=== PATIENT | female | born 1960 | race Caucasian/White ===

== ENCOUNTER 2018-04-08 16:15 | Emergency (ER) | payer SELFPAY ==
[2018-04-08] MEDS ORDERED: diphenhydrAMINE 50 MG/ML VIAL ONE ×2 (16:49→19:26)
[2018-04-08] MEDS ORDERED: Acetaminophen 500 MG TAB ONE ×2 (16:49→19:26)
[2018-04-08] MEDS ORDERED: Ketorolac Tromethamine 30 MG/ML VIAL ONE ×2 (16:49→19:26)
[2018-04-08] MEDS ORDERED: Metoclopramide HCl 10 MG/2 ML VIAL ONE ×2 (16:49→19:26)
[2018-04-08 16:50] LABS: Hemoglobin 12.1 g/dL (12.0-16.0); Mean Corpuscular Hemoglobin 30.4 pg (27.0-31.0); Mean Corpuscular Volume 89.4 fL (78.0-98.0); Mean Platelet Volume 7.6 fL (7.4-10.4); Platelet Count 242 thou/uL (130-400); RBC Distribution Width 12.5 % (11.5-14.5); Red Blood Cell (RBC) Count 3.97 mill/uL (4.20-5.40); White Blood Cell (WBC) Count 4.4 thou/uL (4.8-10.8)
[2018-04-08 17:08] LABS: Elliptocytes SLIGHT = 2-5 cells (100X) (0-1/hpf); Eosinophils 4 % (0-10); Lymphocytes 47 % (21-51); MDiff Complete? YES; Monocytes 5 % (0-10); Neutrophil 44 % (42-75); PLT Morphology Comment Appears Adequate
[2018-04-08 17:14] LABS: ALT (SGPT) 13 U/L (8-55); AST (SGOT) 29 U/L (5-34); Albumin 4.4 g/dL (3.5-5.0); Alkaline Phosphatase 179 U/L (40-150); Anion Gap 14 mmol/L (10-20); BUN (Urea Nitrogen) 11 mg/dL (9.8-20.1); Bilirubin, Total 0.2 mg/dL (0.2-1.2); Calc. Creatinine Clearance 0 mL/min (70-130); Calcium 9.5 mg/dL (7.8-10.44); Carbon Dioxide 26 mmol/L (22-29); Chloride 104 mmol/L (98-107); Estimated GFR-MDRD 73; Globulin 3.2 g/dL (2.4-3.5); Glucose 95 mg/dL (70-105); Lipase 33 U/L (8-78); Potassium 3.7 mmol/L (3.5-5.1); Protein, Total 7.6 g/dL (6.0-8.3); Sodium 140 mmol/L (136-145)
[2018-04-08] MEDS ORDERED: methylPREDNISolone Sod Succ/PF 125 MG/2 ML VIAL ONE (18:10)
[2018-04-08] MEDS ORDERED: Magnesium 2 GM/50 ML BAG (IN WATER) ONE (18:10)
[2018-04-08] MEDS ORDERED: Water For Inject, Bacteriostat 30 ML ONE (18:10)
[2018-04-08 18:53] LABS: Bilirubin Negative (Negative); Blood, Urine Negative (Negative); Clarity CLEAR (Clear); Glucose, Urine (Dipstick) Negative (Negative); Leukocyte Trace (Negative); Nitrite Negative (Negative); Protein, Urine (Dipstick) Negative (Neg-Trace); Specific Gravity, Urine 1.015 (1.002-1.036); Urobilinogen 0.2 mg/dL (0.2-1.0); pH, Urine 6.5 (5.0-9.0)
[2018-04-08 18:55] LABS: Bacteria/HPF None Seen HPF (None Seen); Hyaline Casts/LPF 0-3 HYALINE CAST LPF (0-3 Hyaline); Pregnancy Test - Urine (BHCG) Negative (Negative); Pregu Control Background? CLEAR/WHITE (CLR/WHITE); Pregu Control Bar Appear? YES (CONTROL BAR); RBC/HPF None Seen HPF (0-3); Specific Gravity 1.015 (1.002-1.036); Squamous Epithelial 0-3 HPF (0-3); WBC/HPF 0-3 HPF (0-3)
== END 2018-04-08 20:13 | disposition home or self-care (01) ==
LOC: ERS 16:15
DX: B34.9 Viral infection, unspecified (principal); R51 Headache; I10 Essential (primary) hypertension; F31.9 Bipolar disorder, unspecified; F17.200 Nicotine dependence, unspecified, uncomplicated
CPT/HCPCS: 51701; 80053; 81003; 81015; 81025; 83690; 85025; 87804; 93005; 96365; 96367; 96375; A4353; J1200; J1885; J2765; J2930

== ENCOUNTER 2018-04-09 20:24 | Emergency (ER) | payer SELFPAY ==
[2018-04-09] MEDS ORDERED: Meclizine HCl 25 MG TAB ONE (21:13)
[2018-04-09] MEDS ORDERED: diphenhydrAMINE 25 MG CAP ONE (21:13)
[2018-04-09] MEDS ORDERED: Acetaminophen 500 MG TAB ONE (21:13)
[2018-04-09] MEDS ORDERED: Metoclopramide HCl 10 MG TAB ONE (21:16)
--- NOTE | 2018-04-09 21:36 | CT ---
CT OF HEAD NONCONTRAST: 04/09/18 INDICATION: Headache. FINDINGS: There is no evidence of acute intracranial hemorrhage, mass effect, midline shift or ventriculomegaly . Imaged paranasal sinuses and mastoid air cells are patent. IMPRESSION: No acute intracranial hemorrhage or mass effect. POS: [facility]
== END 2018-04-09 22:05 | disposition home or self-care (01) ==
LOC: ERS 20:24
DX: R51 Headache (principal); R42 Dizziness and giddiness; R63.5 Abnormal weight gain; I10 Essential (primary) hypertension; F31.9 Bipolar disorder, unspecified; F17.200 Nicotine dependence, unspecified, uncomplicated; Z79.899 Other long term (current) drug therapy
CPT/HCPCS: 70450; 93005

== ENCOUNTER 2018-04-25 14:40 | Observation (INO) | payer SELFPAY ==
[~2018-04-25 14:40] MED LIST: ISOVUE-370 76%-LOCM 1 ML ONE
[2018-04-25] MEDS ORDERED: Promethazine HCl 25 MG/ML VIAL ONE (15:04)
[2018-04-25] MEDS ORDERED: Lidocaine Viscous Sol 2% 15 ml UD Cup ONE (15:04)
[2018-04-25] MEDS ORDERED: Mag-Al 1200 mg/1200 mg/30 ML UDCUP ONE (15:04)
[2018-04-25 15:13] LABS: Bilirubin Negative (Negative); Blood, Urine Negative (Negative); Clarity CLEAR (Clear); Glucose, Urine (Dipstick) Negative (Negative); Leukocyte Negative (Negative); Nitrite Negative (Negative); Protein, Urine (Dipstick) Negative (Neg-Trace); Specific Gravity, Urine 1.005 (1.002-1.036); Urobilinogen 0.2 mg/dL (0.2-1.0)
[2018-04-25 15:22] LABS: #Basophils 0.1 thou/uL (0.0-0.2); #Eosinphils 0.1 thou/uL (0.0-0.7); #Lymphocytes 1.6 thou/uL (1.20-3.40); #Monocytes 0.3 thou/uL (0.11-0.59); #Neutrophils 3.8 thou/uL (1.40-6.50); %Basophils 1.3 % (0.0-1.0); %Lymphocytes 27.9 % (21.0-51.0); %Monocytes 4.3 % (0.0-10.0); %Neutrophils 64.6 % (42.0-75.0); Hemoglobin 13.6 g/dL (12.0-16.0); Mean Corpuscular HGB CONC 34.6 g/dL (32.0-36.0); Mean Corpuscular Hemoglobin 31.5 pg (27.0-31.0); Mean Corpuscular Volume 91.1 fL (78.0-98.0); Mean Platelet Volume 7.3 fL (7.4-10.4); Platelet Count 320 thou/uL (130-400); RBC Distribution Width 12.5 % (11.5-14.5); Red Blood Cell (RBC) Count 4.32 mill/uL (4.20-5.40); White Blood Cell (WBC) Count 5.9 thou/uL (4.8-10.8)
--- NOTE | 2018-04-25 15:32 | RAD ---
PORTABLE CHEST: Date: 04/25/18 PROVIDED CLINICAL HISTORY: Epigastric pain. FINDINGS: Cardiac and mediastinal silhouette is within normal limits for portable technique. No focal consolida tion, pleural fluid, or pneumothorax apparent. IMPRESSION: No evidence for an acute cardiopulmonary process. POS: [facility]
[2018-04-25 15:43] LABS: ALT (SGPT) 21 U/L (8-55); AST (SGOT) 32 U/L (5-34); Albumin 4.7 g/dL (3.5-5.0); Alkaline Phosphatase 202 U/L (40-150); Anion Gap 18 mmol/L (10-20); BUN (Urea Nitrogen) 10 mg/dL (9.8-20.1); Bilirubin, Total 0.3 mg/dL (0.2-1.2); Calc. Creatinine Clearance 0 mL/min (70-130); Calcium 10.3 mg/dL (7.8-10.44); Carbon Dioxide 20 mmol/L (22-29); Chloride 102 mmol/L (98-107); Estimated GFR-MDRD 76; Globulin 3.5 g/dL (2.4-3.5); Glucose 110 mg/dL (70-105); Lipase 23 U/L (8-78); Potassium 3.8 mmol/L (3.5-5.1); Protein, Total 8.2 g/dL (6.0-8.3); Sodium 136 mmol/L (136-145)
[2018-04-25] MEDS ORDERED: Morphine 4 MG/ML VIAL ONE ×2 (15:54→17:17)
--- NOTE | 2018-04-25 16:46 | CT ---
CT ABDOMEN AND PELVIS WITH IV CONTRAST: 04/25/2018 HISTORY: Epigastric abdominal pain for one week with associated vomiting. History of gastric ulcers and bowel obstructions. COMPARISON: None available. FINDINGS: A noncalcified pulmonary nodule is seen at the posterolateral right lung base, measuring 5 mm. There are also small, pleural-based, nodular densities seen within the right middle lobe and lingula, as w ell as each lower lobe. No pleural effusion is present. Post cholecystectomy changes are noted. There is a subcentimeter, zsm-btudf-ld-characterize, hypodense lesion in the mid portion of the left kidney. The liver, spleen, pancreas, bilateral adrenal glands, right kidney, and urinary bladder demonstrate a normal CT appearance. Vascular calcifications are seen in the abdominal aorta and involving the iliac arteries. There is evidence of a hysterectomy. Loops of small bowel are normal in caliber. There is minimal herniation of fat between the rectus abdominis muscles, at the level of the umbilicu s. No free fluid, fluid collection, or lymphadenopathy is seen in the abdomen or pelvis. The osseous structures are intact. IMPRESSION: 1. Right lower lobe pulmonary nodule with several additional pleural-based nodular densities at each lung base. A nonemergent CT thorax is recommended for further evaluation. 2. Postcholecystectomy changes. 3. Hysterectomy. 4. Colonic diverticulosis. 5. Der-fluut-vo-characterize, hypodense lesion in the left kidney. 6. No acute findings are seen in the abdomen or pelvis. CODE LN POS: [facility]
[2018-04-25] MEDS ORDERED: Sucralfate 1 GM/10 ML UDCUP ONE (17:17)
--- NOTE | 2018-04-25 17:30 | PDOC.FPRHP ---
- History of Present Illness Chief Complaint: abdominal pain History of Present Illness: 58yo F with pmh of multiple abdominal surgeries presents with a 1 week hx of constant "undescribable" abdominal pain in the epigastric area that is exacerbated by mvmt and relieved by nothing. Pain is rated 9/10 and has associated subjective chills, and nausea/vomiting 15x/day. Pt reports she has vomited a few small blood clots on and off throughout the week. No recent dietary changes, no travel outside the country, no diarrhea or constipation. last BM was 2 days ago. Pt has hx of peptic ulcer disease 15 years ago, pts disease resolved after course of unkown med (presumably ppi). Of note the pt did present to the ED 3 days ago and pain resolved with phenergan. Pt was able to go home. ED Course: morphine 12mg, carafate 1g, GI cocktail, phenergan 12.5mg, and 1L NS - Allergies/Adverse Reactions Allergies Allergy/AdvReac Type Severity Reaction Status Date / Time Sulfa (Sulfonamide Allergy Verified 04/25/18 22:32 Antibiotics) - Home Medications Medication Instructions Recorded Confirmed Type Gabapentin [Neurontin] 800 mg PO TID 04/25/18 04/25/18 History PARoxetine HCl [Paxil] 40 mg PO DAILY 04/25/18 04/25/18 History Phenytoin Sodium Extended 100 mg PO QID 04/25/18 04/25/18 History [Dilantin ER] - History PMHx: Depression, PSHx: section x2, hysterectomy, cholecystecomy, abdominal adhesion resection x2 FHx: non contributory Social: smokes 1-2 cigarettes/day, denies etoh/drugs - Review of Systems General: reports: fever/chills. denies: fatigue Eyes: denies: eye pain, vision changes ENT: denies: nasal congestion, rhinorrhea Respiratory: denies: cough, shortness of breath Cardiovascular: denies: chest pain, palpitation Gastrointestinal: reports: nausea, vomiting. denies: diarrhea, constipation Genitourinary: denies: dysuria, polyuria, discharge Skin: denies: rashes, lesions Musculoskeletal: denies: pain, tenderness Neurological: denies: syncope, seizure Psychological: denies: anxiety, depression - Vital signs BP: [153/113] HR: [76] RR: [18] Tmax: [98.3] Pox: [98]% on [ra] Wt: [77kg] - Physical Exam Constitutional: awake, alert and oriented, other (moderate distress 2/2 abdominal pain) HEENT: normocephalic and atraumatic, EOMI, conjunctiva clear, grossly normal vision, grossly normal hearing Neck: supple, trachea midline Chest: no-tender to palpation Heart: RRR, normal S1/S2 Lungs: CTAB, no respiratory distress Abdomen: soft, bowel sounds present, other (diffuse moderate TTP, no rebound tenderness) Musculoskeletal: normal structure, normal tone Neurological: no focal deficit, normal sensation Skin: no rash/lesions, good turgor Heme/Lymphatic: no unusual bruising or bleeding, no purpura Psychiatric: normal mood and affect, good judgment and insight FMR H&P: Results - Labs Result Diagrams: 04/25/18 15:08 04/26/18 05:43 Lab results: WBC 5.9 thou/uL (4.8-10.8) 04/25/18 15:08 Hgb 13.6 g/dL (12.0-16.0) 04/25/18 15:08 Hct 39.4 % (36.0-47.0) 04/25/18 15:08 MCV 91.1 fL (78.0-98.0) 04/25/18 15:08 Plt Count 320 thou/uL (130-400) 04/25/18 15:08 Neutrophils % 64.6 % (42.0-75.0) 04/25/18 15:08 Sodium 136 mmol/L (136-145) 04/25/18 15:07 Potassium 3.8 mmol/L (3.5-5.1) 04/25/18 15:07 Chloride 102 mmol/L (98-107) 04/25/18 15:07 Carbon Dioxide 20 mmol/L (22-29) L 04/25/18 15:07 BUN 10 mg/dL (9.8-20.1) 04/25/18 15:07 Creatinine 0.78 mg/dL (0.6-1.1) 04/25/18 15:07 Glucose 110 mg/dL (70-105) H 04/25/18 15:07 Lactic Acid 1.0 mmol/L (0.5-2.2) 04/25/18 15:07 Calcium 10.3 mg/dL (7.8-10.44) 04/25/18 15:07 Total Bilirubin 0.3 mg/dL (0.2-1.2) 04/25/18 15:07 AST 32 U/L (5-34) 04/25/18 15:07 ALT 21 U/L (8-55) 04/25/18 15:07 Alkaline Phosphatase 202 U/L (40-150) H 04/25/18 15:07 Serum Total Protein 8.2 g/dL (6.0-8.3) 04/25/18 15:07 Albumin 4.7 g/dL (3.5-5.0) 04/25/18 15:07 Lipase 23 U/L (8-78) 04/25/18 15:07 Urine Ketones Trace mg/dL (Negative) H 04/25/18 14:57 Urine Blood Negative (Negative) 04/25/18 14:57 Urine Nitrite Negative (Negative) 04/25/18 14:57 Ur Leukocyte Esterase Negative (Negative) 04/25/18 14:57 FMR H&P: A/P - Problem List (1) Abdominal migraine, intractable Current Visit: Yes Status: Acute Code(s): G43.D1 - ABDOMINAL MIGRAINE, INTRACTABLE (2) Peptic ulcer disease Current Visit: Yes Status: Acute Code(s): K27.9 - PEPTIC ULC, SITE UNSP, UNSP AC OR CHR, W/O HEMOR OR PERF (3) Seizure disorder Current Visit: Yes Status: Acute Code(s): G40.909 - EPILEPSY, UNSP, NOT INTRACTABLE, WITHOUT STATUS EPILEPTICUS (4) Depressed Current Visit: Yes Status: Acute Code(s): F32.9 - MAJOR DEPRESSIVE DISORDER , SINGLE EPISODE, UNSPECIFIED - Plan Intractable abdominal pain 2/2 PUD A- Pt has no obvious source of pain and malicious causes r/o with abdominal CT. Considering hx this is likely 2/2 PUD. Pt is hemodynamically stable. Pain is severe in nature and modestly controlled with 12mg morphine given in ED. P- symptomatic relief with phenergan, carafate, bentyl, and tylenol. -Schedule protonix. -If pt has BM, will obtain H pylori Ag and FOBT -consider inpatient GI consultation. Mild hypovolemia 2/2 above A- s/p 1L NS in ED P- NS 120ml/hr - phenergan for nausea Seizure disorder A- Last seizure was over 1 year ago, pt has not tolerated PO dilantin for 2 days P- Check dilantin level - home dilantin Depression -home paxil FULL code PPx: SCDs for VTE, Protonix for GI FMR H&P: Upper Level - Pertinent history 58 yo CF with PMH of PUD, depression, and seizure disorder presenting with intermittent abdominal pain and associated vomiting over the last week. Pt describes sharp/cramping epigastric abd pain that radiates to her back that is worsened with positional changes. No alleviating factors. Pt also endorses associated vomiting, reporting 10-20 episodes per day, mainly dry heaving. Pt also states vomit is blood tinged. She states she has been unable to tolerate PO intake. No recent travel, new diet or medication changes, fevers/chills, diarrhea, or sick contacts. Pt states this has happened before when she was first told about PUD and had EGD out of town. Pt has not yet established with PCP in area. - Pertinent findings VSS Gen: pleasnat in NAD CV: RRR Resp: unlabored, CTAB Abd: BS hypoactive, subjective TTP epigastrium, mild voluntary guarding, no rashes/fluid wave/rebound - Plan Date/Time: 04/25/18 1730 I, Kirill Osuna MD PGY3, have evaluated this patient and agree with findings/ plan as outlined by financial intern resident. Pertinent changes/additions are listed here. 1. Abdominal pain possibly 2/2 PUD -Pt presents with continued abdominal pain but initial workup in ER shows no acute process with normal lab workup. In ER, pt received morphine 12mg, carafate 1g, GI cocktail, phenergan 12.5mg, and 1L NS. -Pt states no relief with initial interventions. -With poor PO intake, continue mIVF. Will provide symptomatic relief with phenergan, bentyl, and tylenol. -Schedule protonix. -No evidence of active bleeding with normal BUN/Cr ratio, will attempt one dose of toradol and monitor response. -If pt has BM, will obtain H pylori Ag -If no improvement, consider inpatient GI consultation. 2. Seizure disorder -Check phenytoin level -Continue medication -Pt's last seizure was over 1 year ago. FULL code PPx: SCDs for VTE, Protonix for GI See financial intern portion of H&P for more details. disposition: Admit to medical observation for anticipated length of stay less than two midnights, pending clinical course. Addendum - Attending - Attending Attestation Date/Time: 04/25/181999 I personally evaluated the patient and discussed the management with Dr. Sabillon and Enrrique I agree with the History, Examination, Assessment and Plan documented above with any addition or exceptions noted below. 58 yo female with history of abdominal adhesions, PUD, MDD, and seizure d/o presents for evaluation of severe abdominal pain. Patient reports progressive and severe abdominal pain over the past week. Was seen 3 days ago for severe pain. Associated symptoms include nausea and vomiting. No change in bowel habits. No change in belching or flatus. Reports blood in vomiting and continuous dry heaving. Reports a similar episode when she was dx with PUD 15 years ago but reports this is much more severe. States the pain is hard to describe. Reports knot in stomach, guadarrama, burning, sore. Located in epigastric area. Radiate to center of back between shoulder blades. Reports morphine in ER did not even touch the pain. States is she remains still she has some relief. Has not been able to eat or take medications in the last 2 days. VS reviewed. Labs reviewed. Imaging reviewed. Tender to touch at epigastric area. BS present. No rebound. Voluntary guarding. ND. 1. Severe abdominal pain: Will schedule pain meds and GI meds. No significant findings on imaging or labs. Will consult GI in AM. Consider vascular scan if workup negative. Prior history of adhesion with 2 surgical resection will potentially need to involve gen surg if workup inconclusive. 2. Lung nodules: Needs pulm consult and workup outpatient. 3. Seizure d/o: Last seizure 1 year ago. Has not been about to take medication in 2 days. Will load then continue maintenance. Check level. 4. DVT ppx: Lovenox ABrayMD
[2018-04-25] MEDS ORDERED: Ondansetron PF 4 MG/2 ML Vial ONE (18:53)
[2018-04-25] MEDS ORDERED: Acetaminophen 325 MG TAB PO PRN (19:47)
[2018-04-25] MEDS ORDERED: Simethicone Chewable 80 MG TAB PO PRN (19:47)
[2018-04-25] MEDS ORDERED: Ondansetron PF 4 MG/2 ML Vial IVP PRN (19:47)
[2018-04-25] MEDS ORDERED: HYDROcodone/Acetaminophen 5/325 mg Tablet PO PRN (19:47)
[2018-04-25] MEDS ORDERED: Calcium Carbonate 500 MG ChewTAB PO PRN (19:47)
[2018-04-25] MEDS ORDERED: Promethazine HCl 25 MG/ML VIAL IM/IV PRN (19:54)
[2018-04-25] MEDS ORDERED: Promethazine 25 MG TAB PO PRN (19:55)
[2018-04-25] MEDS ORDERED: Ketorolac Tromethamine 30 MG/ML VIAL IVP SCH (20:00)
[2018-04-25] MEDS ORDERED: Pantoprazole 40 MG VIAL IVP SCH (20:00)
[2018-04-25] MEDS: Lactated Ringer's 1,000 ML IV SCH (20:50)
[2018-04-25] MEDS: Gabapentin 400 MG CAP PO SCH (20:52)
[2018-04-25] MEDS: Dicyclomine 10 MG/5 ML UDCUP PO SCH (21:04)
[2018-04-25] MEDS: HYDROcodone/Acetaminophen 5/325 mg Tablet PO PRN (21:05)
[2018-04-25 21:27] LABS: Troponin I Less than 0.010 ng/mL (< 0.028)
[2018-04-25] MEDS ORDERED: Zolpidem Tartrate 5 MG TAB PO SCH (22:00)
[2018-04-25 22:34] VITALS: BMI 28.3
[2018-04-25] MEDS: Sucralfate 1 GM TAB PO SCH (23:00)
[2018-04-25] MEDS: Promethazine 25 MG TAB PO SCH (23:00)
[2018-04-26] MEDS: HYDROcodone/Acetaminophen 5/325 mg Tablet PO PRN ×5 (00:40→23:47)
[2018-04-26] MEDS: Lactated Ringer's 1,000 ML IV SCH ×4 (05:19→22:15)
[2018-04-26] MEDS: Sucralfate 1 GM TAB PO SCH ×4 (05:20→23:47)
[2018-04-26] MEDS: Promethazine 25 MG TAB PO SCH ×4 (05:21→23:47)
--- NOTE | 2018-04-26 05:57 | PDOC.FM ---
Addendum entered and electronically signed by Yu Nash MD 04/26/18 08:56 : [place] prescription Monitoring Program reviewed: Patient has been clonazepam multiple times over the last 2 months. Will hold clonazepam for now and continue paxil. Will monitor for signs of withdrawal. Original Note: - Subjective Subjective: NAEO. Patient resting in bed. Patients her pain is a 7/10. Describes pain as dull yet sharp in the mid epigastrium and radiates to the sides. Patient denies SOB, chest pain, NVD, fever/chills. Patient states that the pain medication she has received relieves her pain temporarily but it breaks through. - Objective MAR Reviewed: Yes Vital Signs & Weight: Vital Signs (12 hours) Temp Pulse Resp BP BP Pulse Ox 04/26/18 03:00 98.3 F 58 L 16 100/65 96 04/25/18 20:05 94 L 04/25/18 20:00 98.0 F 67 16 119/73 94 L 04/25/18 19:47 99.0 F 80 18 115/67 94 L Weight Weight 77.111 kg Result Diagrams: 04/25/18 15:08 04/26/18 05:43 Phys Exam - Physical Examination Constitutional: NAD HEENT: PERRLA, moist MMs, sclera anicteric Neck: supple, full ROM Respiratory: clear to auscultation bilateral Cardiovascular: RRR Gastrointestinal: soft, no distention, positive bowel sounds TTP in RUQ, LUQ and midepigastrium w/ palpation, guarding Musculoskeletal: no edema Neurological: non-focal, moves all 4 limbs Psychiatric: normal affect, A&O x 3 Dx/Plan (1) Depressed Code(s): F32.9 - MAJOR DEPRESSIVE DISORDER, SINGLE EPISODE, UNSPECIFIED Status : Acute (2) Peptic ulcer disease Code(s): K27.9 - PEPTIC ULC, SITE UNSP, UNSP AC OR CHR, W/O HEMOR OR PERF Status: Acute (3) Seizure disorder Code(s): G40.909 - EPILEPSY, UNSP, NOT INTRACTABLE, WITHOUT STATUS EPILEPTICUS Status: Acute - Plan Plan: Intractable abdominal pain 2/2 PUD Considering hx this is likely 2/2 PUD. Pt is hemodynamically stable. Pain is severe in nature and modestly controlled with 12mg morphine given in ED. - Symptomatic relief with phenergan, carafate, bentyl, and tylenol, GI cocktail - Schedule protonix - H pylori Ag and FOBT pending - Will consider inpatient GI consultation for EGD to evaluate for PUD; Appreciate recommendations. Mild hypovolemia 2/2 above s/p 1L NS in ED - Will continue w/ mIVF due to patient's poor PO intake for now - Phenergan for nausea Seizure disorder Last seizure was over 1 year ago, pt has not tolerated PO dilantin for 2 days - Dilantin level 4.6 (low); Will give loading dose today to reach therapeutic range - Home dilantin Depression - Home paxil FULL code PPx: SCDs for VTE, Protonix for GI Dispo: will consult GI for possible EGD Addendum - Attending - Attending Attestation Date/Time: 04/26/18 [id number] I personally evaluated the patient and discussed the management with Dr. Nash I agree with the History, Examination, Assessment and Plan documented above with any addition or exceptions noted below. Patient continuing to complain of epigastric pain and requesting iv pain meds and benzos for anxiety. Exam: soft, mod ttp epigastric. no rebound. Epigastric pain- history of PUD in the past. Carafate, PPI. Will consult GI for evaluation. Appreciate their recs Anxiety disorder- patient states last script for clonazepam was in 11/21 but TPMP shows multiple fills in Dec from multiple providers Seizure disorder- restart dilantin.
[2018-04-26 07:33] LABS: Anion Gap 15 mmol/L (10-20); BUN (Urea Nitrogen) 12 mg/dL (9.8-20.1); Calc. Creatinine Clearance 94 mL/min (70-130); Calcium 8.8 mg/dL (7.8-10.44); Carbon Dioxide 23 mmol/L (22-29); Chloride 105 mmol/L (98-107); Estimated GFR-MDRD 74; Glucose 82 mg/dL (70-105); Potassium 3.8 mmol/L (3.5-5.1); Sodium 139 mmol/L (136-145)
[2018-04-26] MEDS: PARoxetine 20 MG TAB PO SCH (08:11)
[2018-04-26] MEDS: Gabapentin 400 MG CAP PO SCH ×3 (08:11→20:21)
[2018-04-26] MEDS: Pantoprazole 40 MG VIAL IVP SCH (08:13)
[2018-04-26 08:19] LABS: Amphetamine Not Detected (NotDetected); Barbiturates Screen Detected (NotDetected); Benzodiazepine Screen Not Detected (NotDetected); Cocaine Metabolite Screen Not Detected (NotDetected); Medtox Control Line Valid? VALID (VALID); Medtox Reader # READER 1; Methadone Not Detected (NotDetected); Methamphetamine Not Detected (NotDetected); Opiate Screen Not Detected (NotDetected); Oxycodone Screen Not Detected (NotDetected); Phencyclidine (PCP) Not Detected (NotDetected); THC/Cannabinoid Screen Not Detected (NotDetected); Tricyclic Screen Not Detected (NotDetected)
[2018-04-26] MEDS ORDERED: Lidocaine 2% Viscous Solution 20 ML, Aluminum & Magnesium Hydroxide 30 ML, Donnatal Eli... SSW SCH ×2 (08:30→12:15)
[2018-04-26] MEDS: Dicyclomine 10 MG/5 ML UDCUP PO SCH ×4 (09:24→20:22)
[2018-04-26] MEDS: Morphine 2 MG/ML SYRINGE SLOW IVP PRN ×3 (12:06→20:18)
--- NOTE | 2018-04-26 19:47 | CON ---
DATE OF CONSULTATION: 04/26/2018 GI INPATIENT CONSULTATION NOTE REQUESTING PHYSICIAN: Yu Nash MD. REASON FOR CONSULTATION: Abdominal pain. HISTORY OF PRESENT ILLNESS: Katarzyna Pritchett is a 58-year-old woman, who was admitted to the hospital yesterday. She states that about 15 years ago, she was diagnosed with peptic ulcer disease and was treated for some time with multiple medications. She believes she had a colonoscopy as well as an EGD around that time. She also has a history of multiple abdominal surgeries with hysterectomy, cholecystectomy, appendectomy, two C-sections, and a couple of surgeries for intra-abdominal adhesive disease, but the last surgery would have been 20 years ago or so. At any rate, she has no chronic gastrointestinal symptoms, but then for the past several months, intermittently, she was having some mild epigastric pain, but now for the past week, this has dramatically progressed. She is essentially having constant pain in the epigastrium. It is a stabbing sensation, radiating through to her back. It is associated with nausea and multiple episodes of emesis up to 15 times per day. She states that on occasion over the past week, she has passed some dark, reddish, blood clot type material in her emesis. Bowel movements have essentially been normal. Her last bowel movement was 2 to 3 days ago. No fever. She denies any NSAID use. She does not take any acid suppression at home. She is now receiving morphine, Phenergan, and Carafate. A CT of the abdomen and pelvis was essentially unrevealing, and labs show mild elevation in alkaline phosphatase, but otherwise, normal LFTs and normal lipase. REVIEW OF SYSTEMS: Full review of systems including constitutional, head, eyes, ears, nose, throat, GI, , cardiovascular, respiratory, musculoskeletal, and neurologic systems is negative except as noted in the HPI. PAST MEDICAL HISTORY: x2, hysterectomy, appendectomy, cholecystectomy, peptic ulcer disease 15 years ago, depression, abdominal adhesions with surgery x2, ongoing tobacco abuse, and seizure disorder. ALLERGIES: SULFA. OUTPATIENT MEDICATIONS: 1. Neurontin. 2. Paxil. 3. Dilantin. SOCIAL HISTORY: She does smoke. FAMILY HISTORY: Noncontributory. PREOPERATIVE DIAGNOSIS: VITAL SIGNS: Temperature 98.2, pulse 62, blood pressure 124/79, 95% oxygen saturation on room air. GENERAL: A 58-year-old woman, lying in bed comfortably, in no acute distress. SKIN: No jaundice. No rashes were palpable. EYES: No scleral icterus. Extraocular movements intact. ENT: Mucous membranes moist. No oral lesions. LYMPH: No submandibular or supraclavicular lymphadenopathy. NECK: Thyroid nontender to palpation. HEART: Regular rate and rhythm. LUNGS: Clear to auscultation bilaterally. ABDOMEN: Bowel sounds are present. Soft and nondistended. Very tender to palpation in the epigastrium. No guarding or rebound tenderness. EXTREMITIES: No peripheral edema. VESSELS: Radial pulses 2+ bilaterally. NEUROLOGIC: Cranial nerves 2 through 12 intact bilaterally. No focal deficits. LABORATORY STUDIES: WBC 5.9, hemoglobin 13.6, platelets 320. Sodium 131, potassium 3.8, BUN 12, creatinine 0.8, glucose 82. Troponin negative x2. Lipase normal at 23. Urinalysis negative. Alkaline phosphatase 174, AST 32, ALT 21, total bilirubin 0.3, albumin 4.7. IMAGING STUDIES: Chest x-ray showed no acute process. CT of the abdomen and pelvis shows a 5-mm right pulmonary nodule as well as multiple pleural-based nodules bilaterally. She is post hysterectomy and cholecystectomy. There is colonic diverticulosis. Normal small bowel with no evidence of obstruction. Normal liver, spleen and pancreas. No acute abnormalities. ASSESSMENT AND PLAN: 1. Epigastric pain. 2. Nausea and vomiting. 3. Hematemesis. 4. Reported prior history of peptic ulcer disease and intra-abdominal adhesive disease. The patient's presentation seems consistent with probable upper gastrointestinal mucosal process, likely recurrent peptic ulcer disease. Of note, the CT scan did not show any small bowel obstructive process, though she does have this prior history of intra-abdominal adhesive disease. Agree with the IV PPI and pain control for now. We will plan for diagnostic upper endoscopy tomorrow. If the EGD is completely unrevealing, then we could consider prepping her for colonoscopy later this admission. Otherwise, colonoscopy could be deferred to the outpatient setting. Thank you for the consultation. Please call anytime with questions or concerns. Job ID: [id number]
[2018-04-26] MEDS ORDERED: Zolpidem Tartrate 5 MG TAB PO SCH (21:30)
[2018-04-27] MEDS: Morphine 2 MG/ML SYRINGE SLOW IVP PRN ×2 (03:31→17:23)
--- NOTE | 2018-04-27 05:59 | PDOC.FM ---
- Subjective Subjective: NAEO. Patient did receive ambien to help with sleep last night. On exam this morning, patient states that her pain remains 7/10. She states that the pain medication she is receiving take the edge off for a short time and then the pain returns. She denies chest pain, palpitations, NVD. - Objective MAR Reviewed: Yes Vital Signs & Weight: Vital Signs (12 hours) Temp Pulse Resp BP BP Pulse Ox 04/26/18 23:38 98.5 F 56 L 12 116/77 90 L 04/26/18 19:00 98.6 F 57 L 12 116/77 94 L 04/26/18 18:00 113/71 Weight Admit Weight 77.111 kg Weight 77.111 kg I&O: 04/25/18 04/26/18 04/27/18 06:59 06:59 06:59 Intake Total 1851 Output Total 900 Balance 951 Result Diagrams: 04/25/18 15:08 04/26/18 05:43 Phys Exam - Physical Examination patient resting in bed in position HEENT: PERRLA, moist MMs, sclera anicteric Neck: supple, full ROM Respiratory: clear to auscultation bilateral Cardiovascular: RRR Gastrointestinal: soft, no distention, positive bowel sounds tender in RUQ, midepigastrium and LUQ Musculoskeletal: no edema Neurological: non-focal, moves all 4 limbs Psychiatric: normal affect, A&O x 3 Dx/Plan (1) Depressed Code(s): F32.9 - MAJOR DEPRESSIVE DISORDER, SINGLE EPISODE, UNSPECIFIED Status : Acute (2) Peptic ulcer disease Code(s): K27.9 - PEPTIC ULC, SITE UNSP, UNSP AC OR CHR, W/O HEMOR OR PERF Status: Acute (3) Seizure disorder Code(s): G40.909 - EPILEPSY, UNSP, NOT INTRACTABLE, WITHOUT STATUS EPILEPTICUS Status: Acute (4) Hypovolemia Code(s): E86.1 - HYPOVOLEMIA Status: Acute - Plan Plan: Intractable abdominal pain 2/2 PUD Considering hx this is likely 2/2 recurrent PUD. Pt is hemodynamically stable. Pain is severe in nature and modestly controlled with current pain regimen. - Symptomatic relief with phenergan, carafate, bentyl, and tylenol, GI cocktail - Schedule protonix - H pylori Ag and FOBT pending - GI consulted - plan for EGD 04/27. If EGD is unrevealing, plan for colonoscopy later this admission. Appreciate recommendations. Mild hypovolemia 2/2 above s/p 1L NS in ED - Will continue w/ mIVF due to patient's poor PO intake for now - Phenergan for nausea Seizure disorder Last seizure was over 1 year ago, pt has not tolerated PO dilantin for 2 days - Dilantin level 4.6 (low); will restart home meds; no loading dose necessary due to patient remote hx of seizure; will continue to monitor - Home dilantin Depression - Home paxil - pt requesting anti-anxiety meds; declined at this time due to review of patient GEOMATICS PROFESSOR showing multiple prescriptions for clonazepam. When questioned about use of benzos, patient states she has not had clonazepam or filled a script since Nov. According to GEOMATICS PROFESSOR, script was filled as recently as this month. Will continue to monitor anxiety symptoms. FULL code PPx: SCDs for VTE, Protonix for GI Dispo: EGD today, will f/u after procedure Addendum - Attending - Attending Attestation Date/Time: 04/27/18 9723 I personally evaluated the patient and discussed the management with Dr. Nash. I agree with the History, Examination, Assessment and Plan documented above with any addition or exceptions noted below. Epigastric Pain-EGD this morning to r/o PUD. Appreciate GI recs
[2018-04-27] MEDS ORDERED: Ketorolac Tromethamine 30 MG/ML VIAL ONE (08:12)
[2018-04-27] MEDS: Lactated Ringer's 1,000 ML IV SCH ×3 (08:17→23:18)
[2018-04-27] MEDS: Sucralfate 1 GM TAB PO SCH ×3 (08:18→17:21)
[2018-04-27] MEDS: Promethazine 25 MG TAB PO SCH ×5 (08:18→21:12)
[2018-04-27] MEDS ORDERED: Fentanyl 100 MCG/2 ML VIAL ONE ×2 (09:01→09:46)
[2018-04-27] MEDS ORDERED: Midazolam HCl 2 mg/2 ml Vial ONE (09:04)
[2018-04-27] MEDS ORDERED: HYDROmorphone 2 MG/ML VIAL ONE (09:37)
[2018-04-27] MEDS ORDERED: Ondansetron HCl/PF 4 MG/2 ML Vial IVP PRN (09:41)
[2018-04-27] MEDS ORDERED: Meperidine HCl/PF 25 MG/ML VIAL SLOW IVP PRN (09:41)
[2018-04-27] MEDS ORDERED: HYDROmorphone 2 MG/ML VIAL SLOW IVP PRN (09:41)
[2018-04-27] MEDS ORDERED: Promethazine HCl 25 MG/ML VIAL IM PRN (09:41)
[2018-04-27] MEDS ORDERED: Promethazine HCl 25 MG/ML VIAL SLOW IVP PRN (09:41)
[2018-04-27] MEDS ORDERED: Promethazine HCl 25 MG/ML VIAL ONE (09:43)
[2018-04-27] MEDS: Dicyclomine 10 MG/5 ML UDCUP PO SCH ×4 (10:20→21:13)
[2018-04-27] MEDS: Gabapentin 400 MG CAP PO SCH ×3 (10:20→21:13)
[2018-04-27] MEDS: Pantoprazole 40 MG VIAL IVP SCH (10:34)
[2018-04-27] MEDS: PARoxetine 20 MG TAB PO SCH (10:36)
[2018-04-27] MEDS: HYDROcodone/Acetaminophen 5/325 mg Tablet PO PRN ×2 (13:23→19:36)
[2018-04-27] MEDS ORDERED: Lidocaine 1% PF 5 ML VIAL ONE (15:48)
[2018-04-27] MEDS ORDERED: PROPOFOL 200 MG/20 ML VIAL ONE (15:48)
--- NOTE | 2018-04-27 23:55 | OP ---
DATE OF PROCEDURE: 04/27/2018 PROCEDURE: Esophagogastroduodenoscopy with biopsy. PREOPERATIVE DIAGNOSES: Epigastric pain and hematemesis. DESCRIPTION OF PROCEDURE: Informed consent was obtained from the patient. She was sedated with total intravenous anesthesia. The bite block was placed and the endoscope was advanced easily to the second portion of the duodenum and retroflexion was performed in the stomach. The esophagus was normal. The GE junction and Z-line were normal. The stomach had 2 small ulcers in the antrum measuring 7 mm and 5 mm. She had erosive gastritis throughout the body and erythematous gastritis in the fundus of the stomach. Retroflexed views in the stomach were, otherwise, unremarkable. There was erythematous duodenitis in the bulb of the duodenum. The second portion of the duodenum was normal. Biopsies were obtained from the second portion of the duodenum to rule out celiac disease. Biopsies were obtained from the stomach, antrum, and body to rule out H pylori. IMPRESSION: 1. A 7 mm ulcer and a 5 mm antral ulcer were present. Erosive gastritis was present in the antrum and body of the stomach. Biopsies were obtained to rule out H pylori. 2. Erythematous duodenitis. Duodenal biopsies were taken to rule out celiac disease. 3. Otherwise normal esophagogastroduodenoscopy. RECOMMENDATIONS: 1. Pantoprazole 40 mg twice daily for 2 weeks and then once daily. [id number] omeprazole can be taken as a substitution if necessary for cost reasons. 2. Await histopathology. 3. Follow up with Dr. Lui in the office in 4 weeks. I will sign off for now. Please call if GI can be of assistance. Job ID: [id number]
[2018-04-28] MEDS: Sucralfate 1 GM TAB PO SCH ×3 (00:30→12:32)
[2018-04-28] MEDS: HYDROcodone/Acetaminophen 5/325 mg Tablet PO PRN ×2 (00:34→05:40)
[2018-04-28] MEDS: Promethazine 25 MG TAB PO SCH ×2 (03:05→08:35)
[2018-04-28] MEDS: Morphine 2 MG/ML SYRINGE SLOW IVP PRN (03:11)
[2018-04-28] MEDS: Lactated Ringer's 1,000 ML IV SCH ×2 (05:55→08:36)
--- NOTE | 2018-04-28 06:23 | PDOC.FM ---
- Subjective Subjective: NAEO. Patient reports continued pain 7/10 this morning. Patient states she does not have an appetite yet. - Objective MAR Reviewed: Yes Vital Signs & Weight: Vital Signs (12 hours) Temp Pulse Resp BP BP Pulse Ox 04/28/18 04:00 98.7 F 50 L 16 124/61 94 L 04/28/18 00:00 98.5 F 52 L 16 119/76 94 L 04/27/18 20:00 93 L 04/27/18 19:39 98.6 F 60 16 121/78 93 L Weight Admit Weight 77.111 kg Weight 77.111 kg I&O: 04/26/18 04/27/18 04/28/18 06:59 06:59 06:59 Intake Total 1851 1 Output Total 900 Balance 951 1 Result Diagrams: 04/25/18 15:08 04/26/18 05:43 Phys Exam - Physical Examination Constitutional: NAD HEENT: PERRLA, moist MMs, sclera anicteric Neck: supple, full ROM Respiratory: clear to auscultation bilateral Cardiovascular: RRR Gastrointestinal: soft, non-tender, positive bowel sounds Musculoskeletal: no edema Neurological: non-focal, moves all 4 limbs Psychiatric: normal affect Dx/Plan (1) Depressed Code(s): F32.9 - MAJOR DEPRESSIVE DISORDER, SINGLE EPISODE, UNSPECIFIED Status : Acute (2) Peptic ulcer disease Code(s): K27.9 - PEPTIC ULC, SITE UNSP, UNSP AC OR CHR, W/O HEMOR OR PERF Status: Acute (3) Seizure disorder Code(s): G40.909 - EPILEPSY, UNSP, NOT INTRACTABLE, WITHOUT STATUS EPILEPTICUS Status: Acute (4) Hypovolemia Code(s): E86.1 - HYPOVOLEMIA Status: Acute - Plan Plan: Intractable abdominal pain 2/2 PUD Confirmed by EGD w/ presence of 2 antral ulcers. Patient remains hemodynamically stable. - Symptomatic relief with phenergan, carafate, bentyl, and tylenol, GI cocktail - GI consulted - EGD performed on 04/27 showing a 7mm and 5mm antral ulcers. Biopsies taken to r/o H pylori. Duodenal biopsies taken to r/o celiac disease. Recommend pantoprazole 40mg twice daily for 2 weeks and then once daily. Follow up with GI in 4 weeks. Appreciate recommendations. Mild hypovolemia 2/2 above s/p 1L NS in ED - Will d/c IVF; encourage PO hydration - Phenergan for nausea Seizure disorder Last seizure was over 1 year ago, pt has not tolerated PO dilantin for 2 days - Dilantin level 4.6 (low); will restart home meds; no loading dose necessary due to patient remote hx of seizure; will continue to monitor - Home dilantin Depression - Home paxil - pt requesting anti-anxiety meds; declined at this time due to review of patient [employer] showing multiple prescriptions for clonazepam. When questioned about use of benzos, patient states she has not had clonazepam or filled a script since Nov. According to [employer], script was filled as recently as this month. Will continue to monitor anxiety symptoms. FULL code PPx: SCDs for VTE, Protonix for GI Dispo: likely discharge today w/ f/u outpatient with GI Addendum - Attending - Attending Attestation Date/Time: 04/28/18 [id number] I personally evaluated the patient and discussed the management with Dr. Nash I agree with the History, Examination, Assessment and Plan documented above with any addition or exceptions noted below. PUD- stable for d/c on PPI bid and sucralafate.
[2018-04-28 07:27] VITALS: BP 118/76; TEMP 98.5
[2018-04-28] MEDS: Dicyclomine 10 MG/5 ML UDCUP PO SCH ×2 (08:34→12:32)
[2018-04-28] MEDS: PARoxetine 20 MG TAB PO SCH (08:35)
[2018-04-28] MEDS: Gabapentin 400 MG CAP PO SCH (08:35)
--- NOTE | 2018-05-02 00:04 | EKG ---
Test Reason : Blood Pressure : / mmHG Vent. Rate : 082 BPM Atrial Rate : 082 BPM P-R Int : 144 ms QRS Dur : 084 ms QT Int : 386 ms P-R-T Axes : -07 015 010 degrees QTc Int : 450 ms Normal sinus rhythm Normal ECG Confirmed by GAB REBOLLEDO, BART ([id number]), editorial manager MIGUEL WADDELL ([id number]) on 05/02/2018 12:03:54 AM Referred By: Confirmed By:BART DE GUZMAN MD
== END 2018-04-28 12:47 | disposition home or self-care (01) ==
LOC: ERS 14:40 → INTOOBSV 17:20 → T4-A 17:20
PROVIDERS: ADMIT Student in an Organized Health Care Education/Training Program; ATTEND Student in an Organized Health Care Education/Training Program
PROC: 0DB98ZX Excision of Duodenum, Via Natural or Artificial Opening Endoscopic, Diagnostic (ICD-10-PCS; principal; 2018-04-27)
PROC: 0DB78ZX Excision of Stomach, Pylorus, Via Natural or Artificial Opening Endoscopic, Diagnostic (ICD-10-PCS; 2018-04-27)
DX: K29.51 Unspecified chronic gastritis with bleeding (principal); K25.4 Chronic or unspecified gastric ulcer with hemorrhage; K29.81 Duodenitis with bleeding; F32.9 Major depressive disorder, single episode, unspecified; F17.210 Nicotine dependence, cigarettes, uncomplicated; G40.909 Epilepsy, unspecified, not intractable, without status epilepticus; G43.D1 Abdominal migraine, intractable; E86.1 Hypovolemia; F41.9 Anxiety disorder, unspecified; K57.30 Diverticulosis of large intestine without perforation or abscess without bleeding; R91.8 Other nonspecific abnormal finding of lung field; Z79.899 Other long term (current) drug therapy; Z88.2 Allergy status to sulfonamides; Z90.49 Acquired absence of other specified parts of digestive tract; Z98.890 Other specified postprocedural states
CPT/HCPCS: 36415; 71045; 74177; 80048; 80053; 80185; 80306; 81003; 83605; 83690; 84075; 84484; 85025; 88305; 88312; 93005; 96361; 96365; 96374; 96375; 96376; C9113; G0378; J0131; J1170; J1885; J2001; J2250; J2270; J2405; J2550; J2704; J3010

== ENCOUNTER 2018-05-05 17:30 | Emergency (ER) | payer SELFPAY ==
[2018-05-05 18:12] LABS: #Basophils 0.1 thou/uL (0.0-0.2); #Eosinphils 0.3 thou/uL (0.0-0.7); #Lymphocytes 2.5 thou/uL (1.20-3.40); #Monocytes 0.3 thou/uL (0.11-0.59); %Basophils 1.9 % (0.0-1.0); %Eosinophils 6.5 % (0.0-10.0); %Lymphocytes 48.2 % (21.0-51.0); %Monocytes 5.6 % (0.0-10.0); %Neutrophils 37.8 % (42.0-75.0); Hemoglobin 12.6 g/dL (12.0-16.0); Mean Corpuscular HGB CONC 34.1 g/dL (32.0-36.0); Mean Corpuscular Hemoglobin 31.2 pg (27.0-31.0); Mean Corpuscular Volume 91.5 fL (78.0-98.0); Mean Platelet Volume 7.4 fL (7.4-10.4); Platelet Count 249 thou/uL (130-400); RBC Distribution Width 12.4 % (11.5-14.5); Red Blood Cell (RBC) Count 4.02 mill/uL (4.20-5.40); White Blood Cell (WBC) Count 5.2 thou/uL (4.8-10.8)
[2018-05-05 18:33] LABS: ALT (SGPT) 17 U/L (8-55); AST (SGOT) 24 U/L (5-34); Albumin 4.4 g/dL (3.5-5.0); Alkaline Phosphatase 192 U/L (40-150); Anion Gap 13 mmol/L (10-20); BUN (Urea Nitrogen) 14 mg/dL (9.8-20.1); Bilirubin, Total 0.3 mg/dL (0.2-1.2); Calc. Creatinine Clearance 0 mL/min (70-130); Calcium 9.9 mg/dL (7.8-10.44); Carbon Dioxide 26 mmol/L (22-29); Chloride 106 mmol/L (98-107); Estimated GFR-MDRD 73; Glucose 98 mg/dL (70-105); Potassium 3.9 mmol/L (3.5-5.1); Protein, Total 7.4 g/dL (6.0-8.3); Sodium 141 mmol/L (136-145)
[2018-05-05 18:34] LABS: Acetaminophen Less than 6.0 mcg/mL (10.0-30.0); Alcohol Less than 10 mg/dL (Less than 10); CK (CPK) 66 U/L (29-168); Lipase 31 U/L (8-78); Salicylate Less than 8.0 mg/dL (15.0-30.0)
[2018-05-05] MEDS ORDERED: Lidocaine Viscous Sol 2% 15 ml UD Cup ONE ×2 (18:35→19:18)
[2018-05-05] MEDS ORDERED: Oxymetazoline HCl 0.05% ( 15 ML ) ONE (18:35)
[2018-05-05 18:52] LABS: Thyroid Stimulating Hormone 1.8192 uIU/mL (0.35-4.94)
[2018-05-05 19:04] LABS: BHCG - Serum Negative (NEGATIVE); Pregs Control Background? CLEAR/WHITE (CLR/WHITE); Pregs Control Bar Appear? YES (CONTROL BAR)
[2018-05-05] MEDS ORDERED: Ondansetron PF 4 MG/2 ML Vial ONE (19:18)
[2018-05-05] MEDS ORDERED: Mag-Al 1200 mg/1200 mg/30 ML UDCUP ONE ×2 (19:18→19:21)
[2018-05-05] MEDS ORDERED: Pantoprazole 40 MG VIAL ONE (19:18)
[2018-05-05] MEDS ORDERED: Ondansetron ODT 8 MG TAB ONE (19:26)
--- NOTE | 2018-05-05 19:58 | RAD ---
ACUTE ABDOMINAL SERIES WITH FRONTAL VIEW CHEST AND TWO VIEW ABDOMEN: 05/05/18 INDICATION: Pain. FINDINGS: No free air. No lobar consolidation. The cardiac silhouette is normal in size. Bowel gas pattern is nonobstructed. Metallic clips are seen at the medial right upper abdomen. There is a calcification in volving the right hemipelvis. Smaller calcifications are seen overlying the lower pelvis which may re present phleboliths. IMPRESSION: No acute process is identified. POS: [facility]
[2018-05-05 20:29] LABS: Bilirubin Negative (Negative); Blood, Urine Negative (Negative); Clarity CLEAR (Clear); Glucose, Urine (Dipstick) Negative (Negative); Leukocyte Trace (Negative); Nitrite Negative (Negative); Protein, Urine (Dipstick) Negative (Neg-Trace); Specific Gravity, Urine 1.015 (1.002-1.036); Urobilinogen 0.2 mg/dL (0.2-1.0)
[2018-05-05 20:31] LABS: Bacteria/HPF None Seen HPF (None Seen); Hyaline Casts/LPF 0-3 HYALINE CAST LPF (0-3 Hyaline); Pathc Cast-AUWi Flag 0.14 (0-2.49); RBC/HPF 0-3 HPF (0-3); Squamous Epithelial 0-3 HPF (0-3)
[2018-05-05 20:37] LABS: Amphetamine Not Detected (NotDetected); Benzodiazepine Screen Detected (NotDetected); Cocaine Metabolite Screen Not Detected (NotDetected); Medtox Reader # READER 1; Methamphetamine Not Detected (NotDetected); Opiate Screen Not Detected (NotDetected); Phencyclidine (PCP) Not Detected (NotDetected); THC/Cannabinoid Screen Not Detected (NotDetected); Tricyclic Screen Not Detected (NotDetected)
[2018-05-05 20:38] LABS: Barbiturates Screen Detected (NotDetected); Medtox Control Line Valid? VALID (VALID); Methadone Not Detected (NotDetected); Oxycodone Screen Not Detected (NotDetected)
== END 2018-05-05 23:32 | disposition home or self-care (01) ==
LOC: ERS 17:30
DX: F32.9 Major depressive disorder, single episode, unspecified (principal); K92.0 Hematemesis; F17.210 Nicotine dependence, cigarettes, uncomplicated; Z79.899 Other long term (current) drug therapy
CPT/HCPCS: 36415; 74022; 80053; 80306; 80307; 81003; 81015; 82550; 83690; 84443; 84703; 85025; 94760; 96372; 96374; C9113; J0500; J2405